=== PATIENT | male | born 1965 | race Caucasian/White ===

== ENCOUNTER 2021-05-01 10:54 | Emergency (ER) | payer BC ==
[~2021-05-01 10:54] MED LIST: ALLEGRA ALLERG180 MG PO; ASPIRIN CHEWABL81 MG PO; DILTIAZEM ER360 MG PO; LYRICA150 MG PO; NORCO 10-325 T1 EACH PO; PRAVACHOL40 MG PO
[2021-05-01] MEDS ORDERED: BACTROBAN OINT22 GM EXT (12:38)
[2021-05-01] MEDS ORDERED: CEPHALEXIN500 M1 PO (12:38)
== END 2021-05-01 12:46 | disposition home or self-care (01) ==
LOC: ER1 10:54
DX: S62.662A Nondisplaced fracture of distal phalanx of right middle finger, initial encounter for closed fracture (principal); I10 Essential (primary) hypertension; E78.5 Hyperlipidemia, unspecified; Z23 Encounter for immunization; W26.8XXA Contact with other sharp object(s), not elsewhere classified, initial encounter; Y92.009 Unspecified place in unspecified non-institutional (private) residence as the place of occurrence of the external cause
CPT/HCPCS: 12001; 73130; 90471; 90715; 99283

== ENCOUNTER → 2021-08-21 | Outpatient (CLI) | payer BC ==
[~2021-08-21] MED LIST changes: +BACTROBAN OINT22 GM EXT; +CEPHALEXIN500 M1 PO
[2021-08-21 07:11] LABS: BUN/CREATININE RATIO 20 (0-10)
[2021-08-21 07:45] LABS: HEMOGLOBIN 14.3 gm/dl (14.0-17.5); RED BLOOD COUNT 4.8 M/UL (4.20-5.50)
== END ==
LOC: LAB 05:43
PROVIDERS: Family Medicine
DX: E53.8 Deficiency of other specified B group vitamins (principal); E55.9 Vitamin D deficiency, unspecified; E78.5 Hyperlipidemia, unspecified; I10 Essential (primary) hypertension; Z79.891 Long term (current) use of opiate analgesic
CPT/HCPCS: 36415; 80053; 80061; 80307; 82607; 85027